=== PATIENT | female | born 1990 | race Two or more races ===

== ENCOUNTER 2025-01-02 07:55 | Day surgery (SDC) | payer MEDICAID, SELFPAY ==
[2025-01-01 10:36] VITALS: BMI 27.4
[2025-01-01 12:25] LABS: Basophils # (Auto) 0.0 Thou/mm3 (0.0-0.2); Basophils % (Auto) 1 % (0-2.5); Eosinophils # (Auto) 0.2 Thou/mm3 (0.0-0.5); Eosinophils % (Auto) 4 % (0-10); Hematocrit 37.5 % (36.0-46.0); Hemoglobin 12.4 g/dL (12.0-16.0); Immature Granulocytes Auto 0.02 Thou/mm3 (0.00-0.00); Lymphocytes # (Auto) 1.4 Thou/mm3 (1.0-4.8); Lymphocytes % (Auto) 24 % (10-50); Mean Corpuscular HGB Conc 33.1 g/dl (31.0-37.0); Mean Corpuscular Hemoglobin 28.1 pg (25.0-35.0); Mean Corpuscular Volume 85 fL (80-100); Monocytes # (Auto) 0.6 Thou/mm3 (0.0-0.8); Monocytes % (Auto) 10 % (0-12); Neutrophils # (Auto) 3.5 Thou/mm3 (1.8-7.7); Neutrophils % (Auto) 61 % (37-80); Nucleated Red Blood Cell # 0.00 Thou/mm3 (0.00-0.00); Nucleated Red Blood Cell % 0 /100 WBC (0); Platelet Count 273 Thou/mm3 (140-440); RDW Standard Deviation 36.8 fL (36.4-46.3); Red Blood Count 4.42 Miln/mm3 (4.00-5.20); White Blood Count 5.7 Thou/mm3 (3.6-11.0)
[2025-01-01 12:43] LABS: INR 1.0 (0.9-1.3); Partial Thromboplastin Time 29.6 Seconds (22.0-36.0); Prothrombin Time 10.7 Seconds (9.0-12.2)
[2025-01-01 12:46] LABS: Alanine Aminotransferase 10 U/L (10-49); Albumin, Serum 4.8 gm/dL (3.5-5.0); Albumin/Globulin Ratio 1.3 (1.2-2.2); Alkaline Phosphatase 53 U/L (46-116); Anion Gap 7 (7-16); Aspartate Amino Transferase 20 U/L (0-34); BUN/Creatinine Ratio 10 Ratio (12-20); Bilirubin,Total 0.7 mg/dL (0.3-1.2); Blood Urea Nitrogen 7 mg/dL (9-23); Calcium 9.7 mg/dL (8.3-10.6); Calcium (Corrected) 9.7 mg/dL (8.5-10.1); Carbon Dioxide 26.2 mMol/L (20.0-31.0); Chloride 105 mMol/L (98-107); Creatinine (Component) 0.7 mg/dL (0.6-1.3); Estimated Creatinine Clearance 121.0 mL/min (>60); Globulin 3.8 gm/dL (2.3-3.5); Glucose 84 mg/dL (74-106); Osmolality,Calculated 272 (275-295); Potassium 4.2 mMol/L (3.4-5.1); Sodium 138 mMol/L (136-145); Total Protein 8.6 gm/dL (5.7-8.2); eGFR > 60 See Note
[2025-01-01 13:12] LABS: HCG,Qualitative Serum Negative
[2025-01-02] VITALS (10 sets, daily range): BP systolic 98–134; BP diastolic 65–82; PULSE 81–103; RESP 14–21; TEMP 36.1–36.4; O2SAT 97–100; BMI 28.0
--- NOTE | 2025-01-02 08:34 | CHAP ---
Visited briefly with patient giving words of encouragement, comfort and prayer.
--- NOTE | 2025-01-02 12:12 | SUR.PHASEI ---
pt received from OR in recovery bay 5. pt obtunded, breathing unlabored on oxymask 8l, oral airway in place. v/s stable. pt dressing to abd x5 cdi. report received from Dr. Spaulding and Eriberto Aceves.
[2025-01-02] MEDS: ONDANSETRON INJ 2 MG/ML INJ 2 ML 4 MG IVP (12:32)
[2025-01-02] MEDS: METOCLOPRAMIDE INJ 5 MG/ML VIAL 2 ML 10 MG IVP (12:43)
--- NOTE | 2025-01-02 12:46 | ESOP_ITS ---
Date of Procedure 01/02/25 Pre Op Diagnosis Symptomatic cholelithiasis with recurrent biliary colic Post Op Diagnosis Same Procedure Laparoscopic cholecystectomy Findings Patient was found to have noninflamed gallbladder with a single stone Procedure Description After endotracheal anesthesia was given the patient was placed in supine positi on and the abdomen was prepped with chloroprep solution and draped in a sterile manner. After time out was performed I injected a few cc of of half percent Marcaine with epinephrine below the umbilicus and I made an incision for about 3 cm in length. The fascia was cleaned and Veress needle was inserted to create a pneumoperitoneum up to 15 mmHg. Then introduced a 12 mm trocar and a 10 mm camera through the fascia and I inspected the intra-abdominal organs as well as the gallbladder and the liver. Another 5 mm trocar was inserted in the epigastric region under direct vision after injecting some local anesthesia. At this time the patient was kept in reverse Trendelenburg position with the left lateral tilt. The third 5 mm trocar was inserted over the mid axillary line under direct vision and a Mehdi and Joe grasper was used to hold the fundus of the gallbladder. The retraction was carried out by the volunteer services assistant moving the fundus of the gallbladder towards the right shoulder of the patient to create enough traction. I placed a another 5 mm trocar in the midaxillary line just lateral to the rectus muscle under direct vision. I used a fenestrated grasper to retract the neck of the gallbladder laterally towards the patient's right hip. Portion of the liver was covering the neck of the gallbladder. Therefore I placed another 5 mm trocar in the right side lateral to the rectus muscle and used ovarian cyst retractor to keep the liver out of the way and proceeded with surgery. The Calot's triangle was exposed and I achieved the critical view of safety as follows: I dissected out the fatty tissue from the hepatocystic triangle and cleared this area. I also dissected inferior and posterior to the gallbladder to identify the cystic duct and the gallbladder wall. Then superiorly I dissected along the cystic plate up to lower one third third of the gallbladder to lift the gallbladder from the liver. At this time I confirmed that only 2 structures entering the gallbladder were cystic artery and the cystic duct. The common duct was seen distally but no dissection was carried out around the duct. I did not see any need for operative cholangiogram in this patient. The cystic duct was clipped doubly and then divided and cystic artery was similarly dealt with. Then the gallbladder was removed from the liver bed using Harmonic jeevan to control the small blood vessels as the dissection proceeded. There was a small tear at the posterior portion of the gallbladder which leaked bile. At this time I gave her 2 g of Ancef because of clean contaminated case and then proceeded with surgery but I irrigated extensively and removed all the bile in the vicinity of the liver. Then the gallbladder was from the liver bed completely and delivered through the umbilical port using an Endopouch. The liver bed was coagulated with cautery to obtain satisfactory hemostasis. The trocars were pulled out from the abdominal cavity and the fascia at the umbilical incision was closed with interrupted 0 Ethibond. Subcutaneous tissues was closed with 3-0 chromic and injected a few cc of half percent Marcaine with epinephrine and the skin was closed with interrupted 4-0 nylon stitches at all the trocar sites. Dressing was applied with 2 x 2 and Tegaderm. Patient tolerated the procedure well and returned to recovery room in stable condition. Anesthesia GETA Pathology / specimen Other IVF Infused 1,000 Estimated Blood Loss 40 Surgeon Solis Jennings MD Surgical Staff Operation Date: 01/02/25 10:00 Case Staff Anesthesiologist: Randal Spaulding RN First Assistant: Cat Stewart
--- NOTE | 2025-01-02 12:51 | SUR.PHASEII ---
pt lying in gurney with eyes closed, breathing unlabored, dressing to abdomen clean, dry, and intact, VS stable, report from Jf AKERS
--- NOTE | 2025-01-02 13:26 | SUR.PHASEII ---
report to Jf AKERS
--- NOTE | 2025-01-02 13:44 | SUR.PHASEII ---
pt able to tolerate oral fluids without difficulty swallowing.
--- NOTE | 2025-01-02 14:15 | SUR.PHASEII ---
pt awake and alert, breathing unlabored on room air. v/s stable. pt dressing to abd x5 cdi. pt able to ambulate to wheelchair with steady gait. d/c instructions given with sister Megan in room, all questions answered. pt d/c via wheelchair with all belongings.
== END 2025-01-02 14:15 | disposition home or self-care (01) ==
PROVIDERS: PCP Internal Medicine; Referring Provider Surgery; Visit Provider Surgery
PROC: 0FT44ZZ Resection of Gallbladder, Percutaneous Endoscopic Approach (ICD-10-PCS; CPT 47562; principal; 2025-01-02 09:45)
DX: K80.10 Calculus of gallbladder with chronic cholecystitis without obstruction (principal)
CPT/HCPCS: 47562; 36415; 80053; 84703; 85025; 85610; 85730; A4217; A4649; J0131; J0690; J1100; J1885; J2250; J2405; J2704; J2765; J3010; J3490